=== PATIENT | male | born 1955 | race Caucasian/White ===

== ENCOUNTER → 2023-08-28 07:43 | Outpatient (REF) | payer BC, MEDICARE, SELFPAY | LOC: PET 07:43 | PROVIDERS: ATTENDING PHYSICIAN Internal Medicine Hematology & Oncology | DX: C15.5 Malignant neoplasm of lower third of esophagus (principal) | CPT/HCPCS: 78815; A9552 ==

== ENCOUNTER 2023-12-12 06:30 | Day surgery (SDC) | payer BC, MEDICARE, SELFPAY ==
[2023-12-12] VITALS (12 sets, daily range): BP systolic 99–141; BP diastolic 57–91; BMI 28.5
[2023-12-12] MEDS: TYLENOL 1000 MG PO (09:15)
[2023-12-12] MEDS: NEURONTIN 300 MG PO (09:15)
[2023-12-12] MEDS: NORMOSOL-R/PLASMALYTE-A 1000 IV ×2 (09:27→16:24)
--- NOTE | 2023-12-12 10:51 | W.SUR.PREOP ---
Pre-Operative Surgical Note
-
I have examined this patient prior to the performance of the scheduled procedure.
The patient's condition is unchanged from the time of the current History and
Physical and the patient is able to undergo the scheduled procedure.
--- NOTE | 2023-12-12 10:52 | HP.FOC2 ---
Focused History & Physical
Chief Complaint
HPI:
Chief Complaint: Incisional hernia
HPI / Indication for Planned Procedure:
This is a 68-year-old male with a history of a robotic esophagectomy complicated by postop volvulus requiring exploratory laparotomy who then developed a symptomatic incisional hernia.
Relevant Past Medical History: Other (Hyperlipidemia, [place], CAD, esophageal cancer, DVT)
Relevant Social History: Negative
Relevant Family History: Negative
Relevant Past Surgical History: Positive for (Robotic esophagectomy, hernia surgery)
Review of Systems
Review of Pertinent Systems: All Systems Negative
Medication
See Medication form for detailed medications: Yes
Medication List (including Herbals & OTC):
famotidine 20 mg tablet 20 mg PO BID Gastrointestinal issue 11/10/16
aspirin 81 mg chewable tablet 81 mg PO DAILY #30 tabs 11/12/16
atorvastatin 40 mg tablet 40 mg PO QPM #30 tabs 11/12/16
clopidogrel 75 mg tablet 75 mg PO DAILY 02/27/20
bupropion HCl 150 mg 24 hr tablet, extended release 150 mg PO DAILY Mental Health/Anxiety 10/02/20
loratadine 10 mg tablet 10 mg PO DAILY Allergies 10/02/20
tadalafil 5 mg tablet (Cialis) 5 mg PO DAILY ED? 10/02/20
pantoprazole 40 mg tablet,delayed release (Protonix) 40 mg PO BID #180 tabs 12/12/21
Coreg 1.562 mg PO BID 11/07/22
acetaminophen 325 mg capsule (Tylenol) 650 mg PO PRN PRN pain 12/08/23
Medications Reviewed: Yes
Allergies and Reactions
Patient has Allergies: Yes
Noted Allergies and Reactions:
Allergy/AdvReac Type Severity Reaction Status Date / Time
hydromorphone Allergy hallucinations, Verified 12/12/23 09:06
also had
horrific
headache
morphine Allergy hallucinati Verified 12/12/23 09:06
on
Pertinent Physical Exam
All Other Systems: Negative
Head/Neck: Normal
Diagnosis / Assessment
This is a 68-year-old male who presents with an incisional hernia
Plan / Procedure
Will plan for a robotic possible open incisional hernia repair with mesh.
Anesthesia/Sedation to be done by Anesthesia Provider: Yes
--- NOTE | 2023-12-12 14:22 | W.IMMPOSTOP ---
Surgical Immed Post Op Note
-
Primary Surgeon: Jose Coombs MD
Assisting Surgeon: None
Pre-op Diagnosis: Incisional hernia
Post-op Diagnosis: Same
Procedure Performed: Robotic incisional hernia repair with mesh (IPUM+ repair)
Anesthesia Type: General
Specimen / Cultures: None
Estimated Blood Loss: 11 cc
Complications: None
Operative Findings: Some lysis of the transverse colon was performed. Multiple Cymro cheese defects in the M2/M3 region of the abdominal wall. The total length of the defect was roughly 7 x 3 cm these were closed longitudinally using 0 V-Loc 180
suture as well as a #1 Stratafix. The repair was then reinforced with a 15 x [address] (coated polypropylene mesh). Part of the mesh was covered with a preperitoneal flap.
POST OP PLAN:
Imaging: None
Labs: Routine AM
Diet: Advance to Regular as tolerated
Analgesia: Tylenol 650mg q6 Michelle, Enma 5mg q6 PRN, Dilaudid 0.5mg q2h PRN
Neuro/vascular checks: q4h
AC/AP: Hold Therapeutic AC, Ok for DVT PPx
Activity: Ad Karen
Wound/Incisions/Drains: Routine
Abx: None
Dispo: RNF, anticipate discharge home tomorrow
--- NOTE | 2023-12-12 15:33 | PTCARENOTE ---
Pt arrived to 2S in bed. Full assessment completed. IVF initiated. Telemetry applied, weaned to RA. Abdominal lap sites C/D/I. Bandaid noted to L forearm, pt stated ' its a cut from working on a friends [employer]'. Bed locked and in the lowest
position, safety maintained. Oriented to room and call tolentino, at bedside
[2023-12-12] MEDS: TYLENOL 650 MG PO (16:21)
[2023-12-12] MEDS: TORADOL 10 MG IV (16:23)
[2023-12-12] MEDS: LIPITOR 40 MG PO (17:20)
[2023-12-12] MEDS: LOVENOX 40 MG SC (17:20)
[2023-12-12] MEDS: PEPCID 20 MG PO (20:15)
[2023-12-12] MEDS: COREG 1.5625 MG PO (20:15)
[2023-12-12] MEDS: TYLENOL PO ×2 (20:17→23:40)
[2023-12-13 03:30] VITALS: BP 103/58
[2023-12-13] MEDS: TYLENOL PO (03:36)
[2023-12-13 06:13] LABS: Hematocrit 34.9 % (39.0-52.0); Hemoglobin 11.2 g/dL (13.0-18.0); Mean Corp Hgb Conc. 32.1 g/dL (33.0-37.0); Mean Corpuscular Hgb 27.1 pg (27.0-31.0); Mean Corpuscular Volume 84.3 fL (80.0-94.0); Mean Platelet Volume 10.3 fL (7.4-10.4); Platelet Count 202 10^3/uL (130-400); Red Blood Cell Count 4.14 10^6/uL (4.70-6.10); Red Cell Dist. Width 14.8 % (11.5-14.5); White Blood Cell Count 9.6 10^3/uL (4.8-10.8)
--- NOTE | 2023-12-13 06:36 | DOWNTIME ---
There was a [employer] Downtime on 12/13/2023 from 0100 to 12/13/2023 at 0300. Downtime documentation of patient's care, including medication administrations, has been reconciled in the electronic record per guidelines. Refer to the
patient's paper chart under the miscellaneous tab to see printed paper medication records and downtime forms.
[2023-12-13 06:37] LABS: Blood Urea Nitrogen 21 mg/dl (9-20); Calcium 8.9 mg/dl (8.4-10.2); Carbon Dioxide 22 mmol/L (22-30); Chloride 107 mmol/L (98-107); Estimated Creatinine Clearance 70 ml/min; Glucose 140 mg/dl (70-99); Potassium 4.7 mmol/L (3.5-5.1); Sodium 142 mmol/L (135-145); eGFR > 60.00
[2023-12-13] MEDS: PEPCID 20 MG PO (07:46)
[2023-12-13] MEDS: COREG 1.5625 MG PO (07:46)
[2023-12-13] MEDS: TYLENOL 650 MG PO (07:46)
[2023-12-13] MEDS: PROTONIX 40 MG PO (07:46)
--- NOTE | 2023-12-13 08:42 | W.PN.GS2 ---
Today's Communication / Plan
-
Dispo planning.
Assessment / Plan
-
This is a 68-year-old male postoperative day 1 from a robotic incisional hernia repair with mesh. Doing well, expected postoperative course.
Will DC home today.
Time Spent
Total Time Spent with Patient (in minutes): 10
Subjective Data
-
Date of Service: December 13, 2023
Interval Events:
No acute events overnight. Slept well. Pain Controlled. Denies Nausea/Vomiting, +bowel function. Tolerating diet.
Objective Data
-
Intake and Output
12/12/23 12/13/23 12/14/23
06:59 06:59 06:59
Intake Total 1884 / 188
Balance 1885 / 188
Intake:
Oral fluids 960 / 960
IV fluids (Total) 925 / 925
Normosol 100 / 100
Other:
Number of approximated MODERATE 1
amounts of urine
Number of approximated LARGE 3
amounts of urine
Vital Signs
Temp Pulse Resp BP Pulse Ox
97.5 F 62 16 103/58 99
12/13/23 07:56 12/13/23 07:56 12/13/23 07:56 12/13/23 03:30 12/13/23 07:56
Lab Results
12/13/23 05:28
12/13/23 05:28
Calcium 8.9 mg/dl (8.4-10.2) 12/13/23 05:28
Physical Exam
-
GENERAL/NEURO: Awake, Alert, no distress
CHEST: Unlabored breathing on RA
ABDOMEN: Soft, Non-Tender, Non-Distended, incisions clean dry and intact.
[2023-12-13 09:07] VITALS: BP 116/72
--- NOTE | 2023-12-13 09:48 | CM ---
Reviewed the chart notes and spoke with the patient and spouse at the bedside. The patient resides with his spouse in a two story home with no steps to enter. The patient reports no DME/SNF in the past, but has had [facility] after knee replacement.
The patient confirmed his pharmacy of choice is the [facility]. The patient's spouse will provide transportation. CM continues to be available to patient/family and is monitoring medical plan for needs at discharge.
Plan: Discharge to home today with no additional needs identified.
--- NOTE | 2023-12-15 14:49 | OR.RPT ---
Operative Report
Operative Report
Patient Name: Usman Linn
: [] 1955
Date of Operation: [] 12/12/2023
Preoperative Diagnosis: Ventral incisional hernia
Postoperative Diagnosis: Ventral incisional hernia
Procedure(s):
Robotic Ventral incisional hernia repair with Intraperitoneal Underlay Mesh (IPUM+)
Robotic lysis of adhesions (less than 90 minutes)
Surgeon(s):
Dr. Coombs
Specialist Physician(s):
FINN Carlton
Anesthesia: General
Estimated Blood Loss: [11 cc]
Urine Output: None
Drains/Lines/Implants:
[15 x 10 cm] cm Ventralex ST
Specimens:
None
HPI/Surgical Indications:
This is a 68-year-old male who presents with abdominal pain and a known incisional hernia in the setting of a robotic [place] esophagectomy with postop complication of unclear etiology requiring exploratory laparotomy who subsequently developed a
prior hernia that was repaired primarily for incarcerated bowel. Risks/Benefits/Alternatives were discussed at length, and the patient agreed to proceed with surgery for definitive repair of his incisional hernia.
Operative Findings: Some lysis of the transverse colon was performed. Multiple Armenian cheese defects in the M2/M3 region of the abdominal wall. The total length of the defect was roughly 7 x 3 cm these were closed longitudinally using 0 V-Loc 180
suture as well as a #1 Stratafix. The repair was then reinforced with a 15 x [address] (coated polypropylene mesh). Part of the mesh was covered with a preperitoneal flap.
Procedure Description:
The patient was brought to the Operating Room and placed in the supine position with the arms tucked. IV antibiotics were infused and Venodyne stockings placed. Following uneventful induction of general endotracheal anesthesia, an orogastric tube
were placed. The abdomen was prepped and draped in the usual sterile fashion. The abdomen was entered using a Verress technique which required [1] pass, pneumoperitoneum to 15 mmHg was obtained without difficulty. Three (3) 8mm trochars were
passed in a transverse fashion low in the abdomen, roughly 12 cm inferior to the nearest edge of the hernia defect. We then confirm no inadvertent injury had been made while passing the trocar or Veress needle. There was a fair amount of omentum
and bowel stuck in the hernia as well as his J-tube to the level left upper quadrant which we left alone. We began lysing adhesions which took roughly 30 minutes. The hernias contained omentum as well as some small bowel and part of the transverse
colon. Part of the transverse colon was also plastered up against the diaphragm which was left in place. There are multiple midline defects. We began by removing the preperitoneal fat along the midline as well as the falciform ligament. We did
enter the transversalis space on the right side seeing the underside of the transversus abdominis muscle which was preserved. Once exposed, we then began closing the defects which measured roughly 7 cm long by 3 cm wide with a running 0 V-Loc 180
suture for the superior portion of the hernias followed by a #1 Stratafix for the larger inferior portion of the hernias. The repair was then reinforced with a 15 x [address] (coated polypropylene mesh), that was passed through a 12
mm port that was placed in the midline through his incision into one of his existing defects prior to closure. The superior portion of the mesh was able to be well covered with the falciform fat, however the inferior portion of the mesh was
exposed. The mesh was secured in place with a circumferential 2-0 PDS suture as well as cruciaterunning tacking sutures to minimize the space between the mesh and the abdominal wall. After ensuring her flaps were well opposed to the abdominal
wall/mesh and that there was no space for an interstitial hernia, the instruments and ports were removed under direct visualization and pneumoperitoneum was evacuated. All ports were then closed with 4-0 Monocryl's and dressed with Dermabond.
Counts were correct and overall, the patient tolerated the procedure well and was taken to the Recovery Room postoperatively in stable condition. "Tran"Vesta was the attending physician and performed the procedure with assistance from the PA above. The assistance of FINN Carlton was required due to the complexity of the procedure. During the procedure Margot assisted with retraction, exchanging
instruments, passing needles and mesh and closure of the wound. I was present for all portions of the case, excluding wound closure.
Jose Coombs MD
== END 2023-12-13 09:54 | disposition home or self-care (01) ==
LOC: SDS 06:30
PROVIDERS: ATTENDING PHYSICIAN Surgery
DX: K43.2 Incisional hernia without obstruction or gangrene (principal); Z92.89 Personal history of other medical treatment
CPT/HCPCS: 49593; 80048; 85027; C1713

== ENCOUNTER → 2024-01-02 09:32 | Outpatient (REF) | payer BC, MEDICARE, SELFPAY ==
[2024-01-02 10:25] LABS: % Basophils 2.1 % (0-2); % Eosinophils 6.4 % (0-6); % Immature Granulocytes 0.2 % (0-0.5); % Lymphocytes 17.6 % (20.5-51.1); % Monocytes 12.8 % (1.7-9.3); % Neutrophils 60.9 % (42.2-75.2); Absolute Basophils 0.1 10^3/uL (0-0.2); Absolute Eosinophils 0.3 10^3/uL (0-0.7); Absolute Lymphocytes 0.8 10^3/uL (1.2-3.4); Absolute Monocytes 0.6 10^3/uL (0.1-0.6); Absolute Neutrophils 2.8 10^3/uL (1.4-6.5); Hematocrit 38.1 % (39.0-52.0); Hemoglobin 12.1 g/dL (13.0-18.0); Mean Corp Hgb Conc. 31.8 g/dL (33.0-37.0); Mean Corpuscular Hgb 26.8 pg (27.0-31.0); Mean Corpuscular Volume 84.3 fL (80.0-94.0); Mean Platelet Volume 9.3 fL (7.4-10.4); Nucleated Red Blood Cells % 0 % (-); Platelet Count 256 10^3/uL (130-400); Red Blood Cell Count 4.52 10^6/uL (4.70-6.10); Red Cell Dist. Width 15.5 % (11.5-14.5); White Blood Cell Count 4.7 10^3/uL (4.8-10.8)
[2024-01-02 11:22] LABS: ALT (SGPT) 14 U/L (0-50); AST (SGOT) 21 U/L (17-59); Albumin 4.3 g/dl (3.5-5.0); Alkaline Phosphatase 99 U/L (38-126); Blood Urea Nitrogen 22 mg/dl (9-20); Calcium 9.4 mg/dl (8.4-10.2); Carbon Dioxide 21 mmol/L (22-30); Chloride 108 mmol/L (98-107); Glucose 114 mg/dl (70-99); HDL Cholesterol 47 mg/dl; LDL Cholesterol, Calculated 68 mg/dl; Potassium 4.7 mmol/L (3.5-5.1); Sodium 143 mmol/L (135-145); Total Bilirubin 0.8 mg/dl (0.2-1.3); Total Cholesterol 129 mg/dl (50-199); Total Protein 7.1 g/dl (6.3-8.2); Triglyceride 73 mg/dl (10-149); Very Low Density Lipoprotein 14 mg/dl (0-30); eGFR > 60.00
[2024-01-02 11:43] LABS: CEA 1.26 ng/ml
== END ==
LOC: REG 09:32
PROVIDERS: ATTENDING PHYSICIAN Internal Medicine Interventional Cardiology; FAMILY PHYSICIAN Internal Medicine Hematology & Oncology; OTHER PHYSICIAN Family Medicine; REFERRING PHYSICIAN Internal Medicine Cardiovascular Disease
DX: E78.00 Pure hypercholesterolemia, unspecified (principal); I25.2 Old myocardial infarction; C15.5 Malignant neoplasm of lower third of esophagus; D64.9 Anemia, unspecified; C77.0 Secondary and unspecified malignant neoplasm of lymph nodes of head, face and neck; D50.9 Iron deficiency anemia, unspecified; K75.4 Autoimmune hepatitis
CPT/HCPCS: 36415; 80053; 80061; 82248; 82378; 85025

== ENCOUNTER → 2024-08-30 07:55 | Outpatient (REF) | payer BC, MEDICARE, SELFPAY | LOC: PET 07:55 | PROVIDERS: ATTENDING PHYSICIAN Internal Medicine Hematology & Oncology | DX: C15.5 Malignant neoplasm of lower third of esophagus (principal) | CPT/HCPCS: 78815; A9552 ==